=== PATIENT | female | born 1980 | race Caucasian/White ===

== ENCOUNTER 2018-03-28 14:21 | Outpatient (CLI) | payer OTHER | END 2018-03-28 14:22 | disposition home or self-care (01) | LOC: BICULT 14:21 | PROVIDERS: ATTEND Physician Assistant | DX: M79.662 Pain in left lower leg (principal) ==

== ENCOUNTER 2018-07-29 16:29 | Outpatient (CLI) | payer OTHER ==
--- NOTE | 2018-07-29 18:26 | CT ---
ABDOMEN AND PELVIC CT SCAN WITHOUT IV CONTRAST: 07/29/18 HISTORY: 37-year-old female with history of R31.9, R10.9, abdominal pain. The lung bases are clear. The liver, somewhat small gallbladder, pancreas, spleen, and adrenal glands are unremarkable. No renal calculi or obstruction. The appendix is seen and is normal in caliber and contains gas. There is a very small appendicolith associated with the appendix but no CT evidence for acute appendicitis. IMPRESSION: No significant acute process in the abdomen or pelvis. POS: JULES
== END 2018-07-29 16:30 | disposition home or self-care (01) ==
LOC: CT 16:29
PROVIDERS: ATTEND Physician Assistant
DX: R10.9 Unspecified abdominal pain (principal); R31.9 Hematuria, unspecified
CPT/HCPCS: 74176

== ENCOUNTER 2018-07-30 15:03 | Outpatient (CLI) | payer OTHER ==
[2018-07-30 15:52] LABS: #Basophils 0.1 thou/uL (0.0-0.2); #Eosinphils 0.2 thou/uL (0.0-0.7); #Lymphocytes 2.7 thou/uL (1.20-3.40); #Monocytes 0.7 thou/uL (0.11-0.59); #Neutrophils 8.6 thou/uL (1.40-6.50); %Basophils 0.6 % (0.0-1.0); %Eosinophils 1.4 % (0.0-10.0); %Lymphocytes 21.6 % (21.0-51.0); %Monocytes 5.9 % (0.0-10.0); %Neutrophils 70.4 % (42.0-75.0); Hemoglobin 15.2 g/dL (12.0-16.0); Mean Corpuscular HGB CONC 33.5 g/dL (32.0-36.0); Mean Corpuscular Hemoglobin 32.5 pg (27.0-31.0); Mean Corpuscular Volume 97.1 fL (78.0-98.0); Mean Platelet Volume 7.4 fL (7.4-10.4); Platelet Count 321 thou/uL (130-400); RBC Distribution Width 10.8 % (11.5-14.5); Red Blood Cell (RBC) Count 4.68 mill/uL (4.20-5.40); White Blood Cell (WBC) Count 12.3 thou/uL (4.8-10.8)
[2018-07-30 16:10] LABS: Anion Gap 13 mmol/L (10-20); BUN (Urea Nitrogen) 9 mg/dL (7.0-18.7); Calc. Creatinine Clearance 0 mL/min (70-130); Calcium 9.5 mg/dL (7.8-10.44); Carbon Dioxide 25 mmol/L (22-29); Chloride 104 mmol/L (98-107); Estimated GFR-MDRD 68; Glucose 96 mg/dL (70-105); Potassium 4.2 mmol/L (3.5-5.1); Sodium 138 mmol/L (136-145)
== END 2018-07-30 15:04 | disposition home or self-care (01) ==
LOC: LABBT 15:03
PROVIDERS: ATTEND Surgery
DX: Z01.812 Encounter for preprocedural laboratory examination (principal); K38.1 Appendicular concretions
CPT/HCPCS: 80048; 85025

== ENCOUNTER 2018-08-04 13:01 | Day surgery (SDC) | payer OTHER ==
[2018-07-30 15:55] VITALS: BMI 32.0
[2018-08-04] MEDS ORDERED: Levofloxacin 500 mg/D5W 100 ml Premix Bag ONE (13:52)
[2018-08-04] MEDS ORDERED: Midazolam HCl 2 mg/2 ml Vial ONE ×2 (14:28→14:42)
[2018-08-04] MEDS ORDERED: Fentanyl 100 MCG/2 ML VIAL ONE ×2 (14:28→16:23)
[2018-08-04] MEDS ORDERED: Bupivacaine/Epinephrine 0.25% 30 ML VIAL ONE (14:29)
[2018-08-04] MEDS ORDERED: Lidocaine 1% PF 5 ML VIAL ONE (14:56)
[2018-08-04] MEDS ORDERED: Glycopyrrolate 0.2 MG/ML 5 ML SYRINGE ONE (14:56)
[2018-08-04] MEDS ORDERED: PROPOFOL 200 MG/20 ML VIAL ONE (14:56)
[2018-08-04] MEDS ORDERED: Ondansetron PF 4 MG/2 ML Vial ONE (14:56)
[2018-08-04] MEDS ORDERED: Metoclopramide HCl 10 MG/2 ML VIAL ONE (14:56)
[2018-08-04] MEDS ORDERED: Ketorolac Tromethamine 30 MG/ML VIAL ONE (14:56)
[2018-08-04] MEDS ORDERED: Promethazine HCl 25 MG/ML VIAL IM/IV PRN (16:56)
[2018-08-04] MEDS ORDERED: Non-Formulary Medication 1 EACH PO PRN (16:56)
[2018-08-04] MEDS ORDERED: Ondansetron HCl/PF 4 MG/2 ML Vial IVP PRN (16:56)
[2018-08-04] MEDS ORDERED: Promethazine HCl 25 MG/ML VIAL ONE (18:21)
[2018-08-04] MEDS ORDERED: Sodium Chloride 0.9% 10 ML ONE (18:21)
[2018-08-04] MEDS ORDERED: HYDROcodone/Acetaminophen 5/325 mg Tablet ONE (19:31)
--- NOTE | 2018-08-06 08:23 | OP ---
DATE OF PROCEDURE: 08/04/2018 PROCEDURE PERFORMED: Laparoscopic appendectomy. PREOPERATIVE DIAGNOSIS: Appendicolith. POSTOPERATIVE DIAGNOSIS: Appendicolith. HISTORY: Ms. Amado is a 37-year-old woman with lower abdominal CT scan was negative for appendicitis , but did show an appendicolith and she has decided to proceed with laparoscopic appendectomy for pro phylactic purposes. PROCEDURE: After informed was obtained and appropriate preoperative antibiotics administered, the cassandra gonzalez was taken to the operating room, where she was placed in supine position and general endotrache al anesthesia was administered. She was prepped and draped in a standard sterile fashion and local a nesthesia was infused to the skin and subcutaneous tissue above the umbilicus. A transverse skin inc ision was made and the fascia was elevated. A Veress needle was placed into the abdominal cavity wit hout difficulty, carbon dioxide gas was insufflated to an intra-abdominal pressure of 15, which the p atient tolerated well. Opening pressure was less than 5. The Veress needle was then withdrawn and a [place] trocar advanced under direct laparoscopic vision into the abdominal cavity, which was care fully advanced. There was no evidence of Veress needle or trocar injury. Local anesthesia was infuse d to the suprapubic and left lateral position and trocars placed under direct laparoscopic vision. T he appendix was identified and was grossly normal in appearance. The mesoappendix was sequentially l igated and two Endoloops were placed around the base of the appendix . The appendix was divided between the Endoloops, placed into an Endo Catch bag and drawn out through the suprapubic incision. The operative site was examined for hemostasis. It was found to be excellent. The terminal ileum w as identified and there was no Meckel diverticulum or other abnormality seen. The small bowel loops appeared normal and uninflamed. The small bowel and sigmoid colon appeared normal and uninflamed. The ovaries were both grossly normal. There was no evidence of a urachal cyst. The suprapubic troca r was then withdrawn and the fascia closed under direct vision using a [place] needle with excellent t echnical result. The left lateral trocar was removed and hemostasis verified. Carbon dioxide gas wa s allowed to desufflate through the umbilical trocar which was then removed. The skin incisions were closed with 4-0 subcuticular Monocryl sutures. Dermabond dressings were placed. Additional local a nesthesia was infused for postoperative pain control. The patient was extubated and taken to the rec overy room in good condition. Estimated blood loss was minimal and there were no complications. Abdelrahman rodriguez is pending.
== END 2018-08-04 20:20 | disposition home or self-care (01) ==
LOC: SDC 13:01
PROVIDERS: ATTEND Surgery
PROC: 0DTJ4ZZ Resection of Appendix, Percutaneous Endoscopic Approach (ICD-10-PCS; principal; 2018-08-04)
DX: K38.1 Appendicular concretions (principal); K21.9 Gastro-esophageal reflux disease without esophagitis; Z79.82 Long term (current) use of aspirin; Z79.899 Other long term (current) drug therapy; Z88.0 Allergy status to penicillin; Z88.1 Allergy status to other antibiotic agents
CPT/HCPCS: 88304; 96374; J1885; J1956; J2001; J2250; J2405; J2550; J2704; J2765; J3010; J3370

== ENCOUNTER 2019-11-17 08:32 | Outpatient (CLI) | payer OTHER ==
--- NOTE | 2019-11-17 14:41 | MMO ---
Bilateral MAMMO Bilat Screen [facility]. CLINICAL HISTORY: Patient is 39 years old and is seen for screening. The patient has no family history of breast cancer. The patient has no personal history of cancer. VIEWS: The views performed were: bilateral craniocaudal with tomosynthesis and bilateral mediolateral oblique with tomosynthesis. This study has been interpreted with the assistance of computer-aided detection. MAMMOGRAM FINDINGS: There are scattered fibroglandular densities. There are no suspicious masses, suspicious calcifications, or new areas of architectural distortion. IMPRESSION: THERE IS NO MAMMOGRAPHIC EVIDENCE OF MALIGNANCY. A ROUTINE FOLLOW-UP MAMMOGRAM IN 1 YEAR IS RECOMMENDED. THE RESULTS OF THIS EXAM WERE SENT TO THE PATIENT. ACR BI-RADS Category 1 - Negative MAMMOGRAPHY NOTE: 1. A negative mammogram report should not delay a biopsy if a dominant of clinically suspicious mass is present. 2. Approximately 10% to 15% of breast cancers are not detected by mammography. 3. Adenosis and dense breasts may obscure an underlying neoplasm. Reported by: JUAN JOSE SAMANO MD Electonically Signed: [id number]
== END 2019-11-17 08:33 | disposition home or self-care (01) ==
LOC: BICMAMMO 08:32
PROVIDERS: ATTEND Physician Assistant
DX: Z12.31 Encounter for screening mammogram for malignant neoplasm of breast (principal)
CPT/HCPCS: 77063; 77067

== ENCOUNTER 2022-03-30 10:01 | Outpatient (CLI) | payer BC | END 2022-03-30 10:02 | disposition home or self-care (01) | LOC: BICMAMMO 10:01 | PROVIDERS: ATTEND Physician Assistant | DX: Z12.31 Encounter for screening mammogram for malignant neoplasm of breast (principal) | CPT/HCPCS: 77063; 77067 ==